=== PATIENT | female | born 1995 | race Hispanic/Latino ===

== ENCOUNTER 2020-08-17 09:52 | Inpatient (IN) | payer OTHER, SELFPAY ==
[~2020-08-17] VITALS: Ht 160 cm; Wt 73.5 kg
[2020-08-17] VITALS (57 sets, daily range): BP systolic 83–141; BP diastolic 46–72
[2020-08-17] MEDS ORDERED: TUMS750C22 PO (10:24)
[2020-08-17] MEDS ORDERED: PRENTAB9 PO (10:24)
[2020-08-17] MEDS ORDERED: LR 1,000 ML IV ONE (10:30)
[2020-08-17] MEDS ORDERED: PENICILLIN G POTASSIUM IV 5 MU in D5W MINI-BAG PLUS 100 ML IV STA (11:29)
[2020-08-17] MEDS ORDERED: BETAMETHASONE SOLUSPAN 6MG/ML 5ML VIAL (J0702 PER 3MG) IM SCH (11:30)
[2020-08-17] MEDS ORDERED: diphenhydrAMINE 50MG CAP PO PRN (11:30)
[2020-08-17] MEDS ORDERED: ACETAMINOPHEN TAB 650MG DOSE (2X325MG) PO PRN (11:30)
[2020-08-17] MEDS ORDERED: ONDANSETRON 4MG/2ML VIAL IV PRN ×2 (11:30→12:30)
[2020-08-17] MEDS ORDERED: FENTANYL 2MCG/ML ROPIVACAINE 0.2% IN 0.9% NACL 100ML IVBAG As Ordered ONE (11:37)
[2020-08-17] MEDS: LR 1,000 ML IV SCH ×3 (11:42→16:18)
[2020-08-17 11:58] LABS: HEMATOCRIT 39.3 % (36.0-47.0); HEMOGLOBIN 13.3 g/dl (12.0-15.5); MEAN CORPUSCULAR HEMOGLOBIN 31.1 pg (27.0-33.0); MEAN CORPUSCULAR HGB CONC 33.8 g/dl (32.0-36.5); PLATELET COUNT, AUTOMATED 178 10^3/uL (150-450); RED BLOOD COUNT 4.27 10^6/uL (4.00-5.40); WHITE BLOOD COUNT 9.5 10^3/uL (4.0-10.0)
[2020-08-17] MEDS ORDERED: NALOXONE INJ 0.4MG/1ML VIAL (J2310 PER 1MG) IV PRN (12:30)
[2020-08-17] MEDS ORDERED: EPIDURAL COMMENT XX SCH (12:30)
[2020-08-17] MEDS ORDERED: LACTATED RINGER'S 1000 ML IV PRN (12:30)
[2020-08-17] MEDS ORDERED: REFRIGERATOR IV KEYS XX PRN (12:30)
[2020-08-17] MEDS ORDERED: EPIDURAL/PCA KEYS XX PRN (12:30)
[2020-08-17] MEDS ORDERED: FENTANYL/ROPIVACAINE/NACL BAG 100 ML EPIDURAL SCH (12:30)
[2020-08-17] MEDS ORDERED: diphenhydrAMINE 50MG/ML VIAL (J1200) IV PRN (12:30)
[2020-08-17] MEDS: ePHEDrine SULFATE 25 MG/5 ML(5MG/ML) SYRINGE IV PRN ×9 (14:16→20:49)
--- NOTE | 2020-08-17 14:23 | HPEPDOC ---
Obstetrical History & Physical General Date of Admission 08/17/2020 History of Present Illness 24 y/o at 36w0d with ALEKSANDRA of 09/14/2020 presents to L&D from the clinic with complaints of contractions since 0400 this morning with contractions every 5-6 minutes apart. She was checked in the office and found to be 2/60/-3 with a bulgy bag of water. She denies vaginal bleeding, leaking of fluid, and reports positive movement. Chief Complaint: Contractions, pre-term Information Provided By: Patient Age: 24 : 2 Term: 1 Pre-term: 0 Abortions: 0 Livin Care Care: Good Care Number of Visits: 9 Dating Final EDC: Sep 14, 2020 Final EDC for Daily Update: Sep 14, 2020 Final EDC by: LMP LMP: Dec 09, 2019 1st Trimester Date: Jan 26, 2020 Weeks + Days: 6 (+6) EGA at Admission: 36 (+0) Antepartum Course Height (inches): 63 Pre- weight (lbs.): 145 Admission Weight (lbs.): 157 Change in Weight (lbs.): 12 Past Medical History Past Obstetrical History : Past Obstetrical History: Multigravida Date of Delivery: Jun 10, 2014 Gestation: 38 Type of Delivery: Spontaneous Vaginal Del. 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 Past Medical History Medical History Denies Surgical History: [place] teeth Family History Significant Family History: No pertinent family hx Social History Marital Status: Family situation: Spouse/partner home Psychosocial History: No pertinent psych hx * Smoker: non-smoker Alcohol: Denies Drugs: denies Abuse Violence Screening Have you been hit/kicked/slapp: No Have you been sexually assault: No Imunizations Tdap status: current Allergies Coded Allergies: No Known Allergies (Unverified , 08/17/20) Medications Scheduled No.137/Iron/Folic Acd ( Vitamin Tablet) 1 Each Tablet, 1 TAB PO DAILY Scheduled PRN Calcium Carbonate (Tums) 300 Mg Tab.chew, 1 TAB PO Q6HP PRN for HEARTBURN Physical Examination Physical Examination GENERAL: Alert and oriented times three. BREAST: . ABDOMEN: Gravid and non-tender to touch. FETUS: Is vertex (VTX) by sterile vaginal examination (SVE) and fetus is vertex (VTX) by Riky. HEART RATE: Regular rate and rhythm. LUNGS: Clear to auscultation (CTA). EXTREMITIES: No edema. Vital Signs/I&O Vital Signs Date Time Temp Pulse Resp B/P (MAP) Pulse Ox O2 Delivery O2 Flow Rate FiO2 08/17/20 10:12 98.2 71 18 110/71 (84) Room Air 08/17/20 12:44 100 Pertinent Laboratoy Data Blood Type: O+ RBC Antibody Screen: Negative HIV: Negative Hepatitis B: Negative Rapid Plasma Reagin: Nonreactive Rubella: Immune Chlamydia/Gonorrhea: Negative Group B Streptococcus: Unknown Anatomy Ultrasound Placenta Previa: No Vaginal Examination Dilation: 4 cm (4-5) Effacement: 80% Station: -2 Cervical Consistency: Soft Cervical Position: Middle Presentation: Cephalic presentation Assessment Heart Rate (FHR): 150 Variability: Moderate Accelerations: Present Decelerations: None Tocometer Contractions: Yes Frequency: other (every 4-6 minutes) Duration: greater than 60 seconds Strength: palpated as strong Multi-drug resistant Organism: No history of MDRO Assessment/Plan Assessment The patient is a 24-year-old (G)2 para (P)1-0-0-1 at 36+0 weeks by 6- week ultrasound consistent with LMP. Presents to Labor and Delivery (L&D) for a ctive labor. Plan Admit and orient. Customer Retention Representative and consent. Diet: Clear liquids. Group B Streptococcus (GBS) unknown. Labs and intravenous (IV) per unit protocol. Expectant management at this time. Start antibiotics for GBS prophylaxis Betamethasone injection every 24 hours x2 doses Lactated Ringers (LR): Bolus 1000 mL, then at 125 mL/hr. Anticipate normal spontaneous delivery (). C-S as appropriate. RYAN JANE CNM Aug 17, 2020 10:52
[2020-08-17] MEDS ORDERED: LR 500 ML IV PRN ×3 (16:00→17:30)
[2020-08-17] MEDS: PENICILLIN G POTASSIUM IV 2.5 MU in IV 1 EA IV SCH ×3 (16:05→23:58)
[2020-08-17] MEDS ORDERED: MAALOX 30 ML SUSP *UDC PO ONE (19:15)
[2020-08-17] MEDS ORDERED: OXYTOCIN 30 UNITS IN 0.9% NaCl 500ML IV BAG (J2590) As Ordered ONE (23:05)
[2020-08-18 01:14] LABS: CORD GAS ABE V -2.4; CORD GAS HCO3 V 22.9 MEQ/L; CORD GAS O2 SAT V 78.4 %; CORD GAS PCO2 V 41.1 mmHg; CORD GAS PH V 7.363 UNITS; CORD GAS PO2 V 33.9 mmHg; CORD GAS TCO2 V 24.1 MEQ/L
[2020-08-18 01:15] LABS: CORD GAS ABE A -3.8; CORD GAS O2 SAT A 77.8 %; CORD GAS PCO2 A 37.5 mmHg; CORD GAS PH A 7.366 UNITS; CORD GAS PO2 A 35.7 mmHg; CORD GAS SBC A 20.9 MEQ/L; CORD GAS TCO2 A 22.1 MEQ/L
[2020-08-18] MEDS ORDERED: RHOGAM 300 MCG (1500 IU) INJ (J2790) IM SCH (01:30)
[2020-08-18] MEDS ORDERED: ACETAMINOPHEN TAB 650MG DOSE (2X325MG) PO PRN (01:30)
[2020-08-18] MEDS ORDERED: ANUSOL HC CREAM 30GM TOP PRN (01:30)
[2020-08-18] MEDS ORDERED: IBUPROFEN 600MG TAB PO PRN (01:30)
[2020-08-18] MEDS ORDERED: MOM 30ML SUSPENSION UDC PO PRN (01:30)
[2020-08-18] MEDS ORDERED: MEASLES,MUMPS,RUBELLA VACCINE INJ (MMR-II) (90707) SC SCH (01:30)
[2020-08-18] MEDS ORDERED: DOCUSATE SODIUM 100 MG CAP PO PRN (01:30)
[2020-08-18] MEDS ORDERED: METHYLERGONOVINE MALEATE 0.2 MG TAB PO PRN (01:30)
[2020-08-18] MEDS ORDERED: OXYTOCIN INJ 10 UNITS/ML VIAL (J2590) IV ONE (01:30)
[2020-08-18] MEDS ORDERED: OXYTOCIN DRIP 30 UNITS in IV 1 EA IV ONE (01:30)
[2020-08-18] MEDS ORDERED: DIBUCAINE 1% OINTMENT 30GM TOP PRN (01:30)
[2020-08-18 03:45] VITALS: BP 107/88
[2020-08-18] MEDS ORDERED: OXYTOCIN INJ 10 UNITS/ML VIAL (J2590) As Ordered ONE (05:00)
[2020-08-18] MEDS: IBUPROFEN 800 MG TAB PO PRN ×2 (05:02→18:03)
[2020-08-18 06:19] VITALS: BP 100/60
[2020-08-18] MEDS: PRENATAL VITAMINS CHEWABLE TABLET PO SCH (07:38)
--- NOTE | 2020-08-18 09:25 | IPN ---
DATE: 08/17/2020 This lady is a 24-year-old, 2, para 1 who was admitted at 36 weeks of gestation, her estimated date of confinement (EDC) is 09/14/2020. She had complaints of contractions every 5-6 minutes in the office, having been checked, found to be 2/60/-3 with bulging membranes. There is no vaginal bleeding or loss. Her past history is that she has had a term gestation, a live infant at 38 weeks of gestation, spontaneous vaginal delivery. While here in the hospital, her lab values are: Hemoglobin is 13.3, hematocrit 39.3, and platelets are 178. Her vital signs have been relatively stable, normally in the low blood pressure range 91/54, 96/55, 91/53, which is reflected in the monitor in that the baseline has some moderate variability but has periods of reduced variability when her blood pressure is significantly low. She also suffers from gastroesophageal reflux disease (GERD) and she was given some Mylanta in order to assess that. She had an epidural in place early on, was assessed by the previous provider and found to be 4-5 cm, bulging membranes, and ballotable, however with contraction head did come down to the cervix. She has had several checks by the previous provider, was found to be still 4-5 cm, no show, no bleeding, category 1 strip, and contractions had spaced out to 9 minutes with the epidural in place. She was given prophylactic antibiotics because GBS status is unknown. She was given one dose of steroids for lung maturity and has another one due in 24 hours pending the fact that she does not deliver. On assessment presently, she has minimal contractions, her variability, again the baseline is low because of hypotension, she is given another Mylanta for her GERD. She has a Madrigal in place draining clear urine and epidural in place. Our plan of management presently, as she has not changed her cervix in many hours, her contractions have spaced out to minimal, the epidural is on minimal of 7 milliunits, and she is having no contractions and no discomfort, our plan of care is to turn off the epidural completely, have her diet as tolerated, regular diet, and allow her to have the completeness of her 24 hour steroids which is due at 0100 hours tomorrow, 08/18/2020. Should she rupture her membranes or her contractions chicken picker, then we would complete with vaginal delivery. Patient expressed understanding of plan of care, was done through interpretation as this lady speaks Faroese only, is comfortable with the plan of care, and it is safe to proceed. We had a 40 minute discussion with interpretation. HIRAL
[2020-08-18 10:00] VITALS: BP 123/71
--- NOTE | 2020-08-18 14:09 | DN ---
DATE OF DELIVERY: 08/18/2020 DESCRIPTION AND DELIVERY: 24-year-old 2 admitted at 36 and 1 in spontaneous labor, had an Epidural in place, spontaneous vaginal delivery, male 6 pounds 14 ounces, 3101 grams, apgars 9 and 9 at 1 and 5 minutes respectively. Arterial pH was 7.36, base excess -3.8, venous pH 7.36, base excess -2.4. Placenta delivered spontaneously, three vessels, cord membranes and tissues intact, perineum was intact. Anterior, posterior, and lateral islas were intact. No evidence of abrasions or tears. The uterus contracted well down to Pitocin. The patient and baby tolerated the procedure well. NAMRATAD
[2020-08-18 18:00] VITALS: BP 110/61
[2020-08-18] MEDS: ACETAMINOPHEN 500 MG TAB PO PRN (19:48)
[2020-08-19 06:00] VITALS: BP 105/66
[2020-08-19] MEDS: IBUPROFEN 800 MG TAB PO PRN ×2 (06:33→16:23)
--- NOTE | 2020-08-19 08:44 | IPNPDOC ---
Progress Note Date of Service: Aug 19, 2020 Day#: 2 Progress Note SUBJECT: 24yo status post uncomplicated doing well day # 2. She has been ambulating, voiding spontaneously without issue and tolerating regular diet. Breast feeding without issue. Reports lochia is decreasing. Patient is ambulating well. Reports pain controlled on oral pain meds. OBJECTIVE: VITAL SIGNS: Within normal limits, afebrile. Alert and oriented times three. Breast: filling, nipples intact and nontender Abdomen: Fundus firm at U-2. Soft, NTTP. Ext: no edema, no calf tenderness ASSESSMENT: 24yo status post uncomplicated doing well day # 2 Vitals within normal limits, afebrile, hemodynamically stable with no evidence of infection. PLAN: 1. Discharge to home today. 2. Tylenol and Motrin for pain PRN. 3. Encourage breast feeding and ambulation. 4. Encourage regular diet as tolerated 5. Follow-up appointment in 6 weeks 6. Discussed return precautions at length. Akvo translate was used to communicate with patient as she is canadian- speaking only VS, I&O, 24H, Fishbone Vital Signs/I&O Vital Signs Date Time Temp Pulse Resp B/P (MAP) Pulse Ox O2 Delivery O2 Flow Rate FiO2 08/19/20 06:00 98.6 73 16 105/66 (79) 08/18/20 18:00 100 Room Air Laboratory Data CBC/BMP CHRISTIANO SIDHU DO Aug 19, 2020 08:44
[2020-08-19 08:48] LABS: HEMATOCRIT 37.1 % (36.0-47.0); MEAN CORPUSCULAR HGB CONC 32.3 g/dl (32.0-36.5); MEAN CORPUSCULAR VOLUME 95.9 fl (80.0-96.0); PLATELET COUNT, AUTOMATED 128 10^3/uL (150-450); RED BLOOD COUNT 3.87 10^6/uL (4.00-5.40); WHITE BLOOD COUNT 9.4 10^3/uL (4.0-10.0)
[2020-08-19] MEDS ORDERED: INFLUENZA QUADRIVALENT PF VACCINE 0.5ML SYRINGE IM ONE (09:00)
[2020-08-19] MEDS: PRENATAL VITAMINS CHEWABLE TABLET PO SCH (09:06)
[2020-08-19 18:16] VITALS: BP 106/67
[2020-08-19] MEDS: ACETAMINOPHEN 500 MG TAB PO PRN (23:30)
[2020-08-20 06:30] VITALS: BP 120/78
[2020-08-20] MEDS: PRENATAL VITAMINS CHEWABLE TABLET PO SCH (08:18)
[2020-08-20] MEDS: IBUPROFEN 800 MG TAB PO PRN (08:19)
[2020-08-20] MEDS: LR 1,000 ML IV SCH (08:21)
[2020-08-20] MEDS ORDERED: INFLUENZA QUADRIVALENT PF VACCINE 0.5ML SYRINGE IM ONE (09:00)
== END 2020-08-20 11:20 | disposition home or self-care (01) | DRG 807 ==
LOC: M LDO 09:52 → M LDI 11:26 → M OBS 08-18 03:12
PROVIDERS: ADMIT Registered Nurse Maternal Newborn; ATTEND Obstetrics & Gynecology
PROC: 10E0XZZ Delivery of Products of Conception, External Approach (ICD-10-PCS; principal; 2020-08-18)
DX: O60.14X0 Preterm labor third trimester with preterm delivery third trimester, not applicable or unspecified (principal); Z37.0 Single live birth; Z3A.36 36 weeks gestation of pregnancy; O99.62 Diseases of the digestive system complicating childbirth; K21.9 Gastro-esophageal reflux disease without esophagitis

== ENCOUNTER 2020-11-30 08:27 | Day surgery (SDC) | payer OTHER ==
[~2020-11-30] VITALS: Ht 160 cm; Wt 65.8 kg
[~2020-11-30 08:27] MED LIST: LIDOCAINE 1% MDV 20ML VIAL SQ PRN; LR 1,000 ML IV ONE; PRENTAB9 PO; TUMS750C22 PO
[2020-11-30 09:12] LABS: HEMATOCRIT 38.8 % (36.0-47.0); HEMOGLOBIN 13.1 g/dl (12.0-15.5); MEAN CORPUSCULAR HEMOGLOBIN 31.5 pg (27.0-33.0); MEAN CORPUSCULAR HGB CONC 33.8 g/dl (32.0-36.5); MEAN CORPUSCULAR VOLUME 93.3 fl (80.0-96.0); PLATELET COUNT, AUTOMATED 232 10^3/uL (150-450); RED BLOOD COUNT 4.16 10^6/uL (4.00-5.40); WHITE BLOOD COUNT 5.2 10^3/uL (4.0-10.0)
[2020-11-30 09:42] LABS: BLOOD UREA NITROGEN 15 MG/DL (7-18); CARBON DIOXIDE LEVEL 28 MEQ/L (21-32); CHLORIDE LEVEL 105 MEQ/L (98-107); CREATININE FOR GFR 0.77 MG/DL (0.55-1.30); GLOMERULAR FILTRATION RATE > 60.0 (>60); GLUCOSE, FASTING 97 MG/DL (70-100); HCG, SERUM QUANTITATIVE < 1.0 MIU/ML; POTASSIUM SERUM 4.1 MEQ/L (3.5-5.1); SODIUM LEVEL 142 MEQ/L (136-145)
[2020-11-30] MEDS ORDERED: BUPIVACAINE HCL 0.5% 10ML VIAL As Ordered ONE (11:40)
[2020-11-30] MEDS ORDERED: ACETAMINOPHEN 650 MG SUPP As Ordered ONE (11:40)
[2020-11-30] MEDS ORDERED: HYDROmorphone HCL 2 MG/ML 1ML VIAL (J1170) As Ordered ONE (12:19)
[2020-11-30] MEDS ORDERED: fentaNYL 100 MCG/2 ML INJECTION (J3010) As Ordered ONE (12:19)
[2020-11-30] MEDS ORDERED: propofoL 200 MG/20 ML VIAL As Ordered ONE (12:19)
[2020-11-30] MEDS ORDERED: LIDOCAINE 2% 100MG/5ML SDV (FOR ANES.) As Ordered ONE (12:19)
[2020-11-30] MEDS ORDERED: dexameTHASONE 4 MG/ML 1ML VIAL (J1100 PER 1MG) As Ordered ONE (12:19)
[2020-11-30] MEDS ORDERED: ROCURONIUM BROMIDE 50 MG/5 ML VIAL As Ordered ONE (12:19)
[2020-11-30] MEDS ORDERED: MIDAZOLAM INJ 2MG/2ML VIAL (J2250 PER 1MG) As Ordered ONE (12:19)
[2020-11-30] MEDS ORDERED: KETOROLAC 60MG 2ML VIAL As Ordered ONE (12:19)
[2020-11-30] MEDS ORDERED: SUGAMMADEX SODIUM 500 MG/5 ML VIAL (BRIDION) As Ordered ONE (12:19)
[2020-11-30] MEDS ORDERED: ONDANSETRON 4MG/2ML VIAL As Ordered ONE (12:19)
[2020-11-30] MEDS ORDERED: METOCLOPRAMIDE INJ 10MG/2ML VIAL (J2765 PER 1) IV PRN (14:15)
[2020-11-30] MEDS ORDERED: MEPERIDINE INJ 25 MG/ML VIAL (J2175) IV PRN (14:15)
[2020-11-30] MEDS ORDERED: LR 1,000 ML IV SCH (14:15)
[2020-11-30] MEDS ORDERED: fentaNYL 100 MCG/2 ML INJECTION (J3010) IV PRN (14:15)
[2020-11-30] MEDS ORDERED: ONDANSETRON 4MG/2ML VIAL IV PRN (14:15)
[2020-11-30] MEDS ORDERED: oxyCODONE 5MG TAB PO PRN (14:15)
[2020-11-30] MEDS ORDERED: KETOROLAC 30 MG/ML 1ML VIAL IV PRN ×2 (14:45→18:00)
[2020-11-30 15:25] VITALS: BP 92/55
--- NOTE | 2020-12-10 10:38 | RO ---
OPERATIVE NOTE DATE OF OPERATION: 11/30/2020 PREOPERATIVE DIAGNOSIS: Satisfied parity. POSTOPERATIVE DIAGNOSIS: Satisfied parity. OPERATION PROPOSED: Operative laparoscopy; bilateral salpingectomy. PROCEDURE PERFORMED: Operative laparoscopy; bilateral salpingectomy. SURGEON: Milo Montenegro MD CLIP ON SUNGLASSES ASSEMBLER: Keke Ley MD without whom the procedure could not be completed, she was there for extraction, retraction and visualization. ANESTHESIA: General plus local anesthetic for intraperitoneal procedures. ESTIMATED BLOOD LOSS: Less than 20 mL. DESCRIPTION OF PROCEDURE: After adequate time out, prepped and draped in lithotomy position, Madrigal catheter in the bladder draining clear urine. Acetaminophen suppository 1300 mg per rectum. Sequentials in place, no antibiotics required. Weighted speculum in the vagina, single tooth tenaculum on the anterior lip of the cervix. Noted that this lady has significant rectocele, however, this is not bothering her at the present time. Uterine elevator was placed in the cervical canal. Reprepping and draping. Small subumbilical incision was made, Veress needle was applied, 4.2 liters of CO2 to flow rate of 14 to pressure of 15. Direct entry into the abdomen with 0-scope, no evidence of perforation, hemorrhage or bleeding. Panoramic review right upper quadrant was normal, left upper quadrant was normal, there was some fluid in the cul-de-sac. The patient has presently completed her menstrual cycle. Right ovary was normal. Right tube was normal. Left ovary was normal. Left tube was normal. Cul-de-sac was clear. Anterior aspect of the bladder was clean. Both round ligaments were normal. A 3 mm port was placed on the right side. A 5 mm port was placed on the left side. Using the LigaSure we elevated the right tube. We used the LigaSure to remove the right tube right to the cornua. This tube was removed through the 5 mm port. We then paid attention to the left side, identifying the fimbriated end and with the LigaSure removed the left tube to the cornual end. With that done the left tube was taken out of the abdomen through the 5 mm port. Once that was done we deflated to 3-5 mm pressure, no evidence of active bleeding. With instrument and pad count correct, ureters identified bilaterally as moving, we deflated to 0 pressure, removed the right and left ports and mid port and subcuticular stitches were placed in all three ports. Marcaine 0.25% 2 mL in each incisional site. Steri-Strips were applied to the sites. The Madrigal catheter was removed. The uterine elevator was removed. The patient was sent to recovery in good condition. cc: Carmen Bullard OB
== END 2020-11-30 15:55 | disposition home or self-care (01) ==
LOC: M SDC 08:27
PROVIDERS: ATTEND Obstetrics & Gynecology
DX: Z30.2 Encounter for sterilization (principal); K21.9 Gastro-esophageal reflux disease without esophagitis
CPT/HCPCS: 36415; 58661; 80048; 84702; 85027; 88302; J1100; J1170; J1885; J2250; J2405; J3010

== ENCOUNTER 2022-08-07 19:01 | Emergency (ER) | payer OTHER ==
[~2022-08-07] VITALS: Ht 160 cm; Wt 69.1 kg
[~2022-08-07 19:01] MED LIST changes: -LIDOCAINE 1% MDV 20ML VIAL SQ PRN; -LR 1,000 ML IV ONE
[2022-08-07 21:07] LABS: BASO % 0.2 % (0.0-1.0); EOS # 0.1 10^3/uL (0.0-0.5); EOS % 1.5 % (0.0-3.0); HEMATOCRIT 38.7 % (36.0-47.0); LYMPH # 1.7 10^3/uL (1.5-5.0); LYMPH % 35.1 % (24.0-44.0); MEAN CORPUSCULAR HEMOGLOBIN 30.2 pg (27.0-33.0); MEAN CORPUSCULAR HGB CONC 33.6 g/dl (32.0-36.5); MEAN CORPUSCULAR VOLUME 89.8 fl (80.0-96.0); MONO # 0.4 10^3/uL (0.0-0.8); MONO % 8.3 % (2.0-8.0); NEUTROPHILS # 2.6 10^3/uL (1.5-8.5); NEUTROPHILS % 54.7 % (36.0-66.0); PLATELET COUNT, AUTOMATED 242 10^3/uL (150-450); RED BLOOD COUNT 4.31 10^6/uL (4.00-5.40); WHITE BLOOD COUNT 4.8 10^3/uL (4.0-10.0)
[2022-08-07 21:27] LABS: ALBUMIN 3.9 GM/DL (3.2-5.2); ALT/SGPT 22 U/L (12-78); BILIRUBIN,DIRECT 0.1 MG/DL (0.0-0.2); BILIRUBIN,TOTAL 0.3 MG/DL (0.2-1.0); BLOOD UREA NITROGEN 12 MG/DL (7-18); CALCIUM LEVEL 8.6 MG/DL (8.5-10.1); CARBON DIOXIDE LEVEL 28 MEQ/L (21-32); CHLORIDE LEVEL 105 MEQ/L (98-107); CREATININE FOR GFR 0.75 MG/DL (0.55-1.30); GLOMERULAR FILTRATION RATE > 60.0 (>60); GLUCOSE, FASTING 104 MG/DL (70-100); LIPASE 38 U/L (73-393); POTASSIUM SERUM 4.2 MEQ/L (3.5-5.1); SODIUM LEVEL 137 MEQ/L (136-145); TOTAL PROTEIN 7.5 GM/DL (6.4-8.2)
[2022-08-07 21:33] LABS: HCG, SERUM QUALITATIVE NEGATIVE (NEGATIVE)
[2022-08-07] MEDS ORDERED: KETOROLAC 30 MG/ML 1ML VIAL IM ONE (23:25)
[2022-08-07] MEDS ORDERED: KETOROLAC 30 MG/ML 1ML VIAL IV ONE (23:40)
[2022-08-08] MEDS ORDERED: ISOVUE-370 76% 100ML VIAL As Ordered ONE (00:05)
[2022-08-08] MEDS ORDERED: ONDANSETRON 4MG ORAL DISINTEGRATING TAB PO ONE (01:50)
[2022-08-08] MEDS ORDERED: NS 2,070 ML in IV 1 EA IV ONE (02:00)
[2022-08-08 02:03] VITALS: BP 120/60
[2022-08-08] MEDS ORDERED: OMEP-173 PO (02:58)
[2022-08-08] MEDS ORDERED: PANTOPRAZOLE 40MG VIAL IV ONE (03:00)
== END 2022-08-08 03:30 | disposition home or self-care (01) ==
LOC: M ED 19:01
DX: A08.4 Viral intestinal infection, unspecified (principal); K21.9 Gastro-esophageal reflux disease without esophagitis
CPT/HCPCS: 74177; 76830; 76856; 80048; 80076; 81000; 81015; 83690; 84702; 84703; 85025; 87088; 87186; 93976; 96361; 96374; 96375; 99284; C9113; J1885; Q9967